=== PATIENT | female | born 1950 | race Hispanic/Latino ===

== ENCOUNTER → 2017-05-19 | Outpatient (CLI) | payer OTHER, MEDICARE ==
[2017-05-19 10:46] LABS: CREATININE 0.9 mg/dL (0.5-1.5)
== END | disposition home or self-care (01) ==
LOC: LAB 09:31
PROVIDERS: ATTEND Neurological Surgery
DX: M54.16 Radiculopathy, lumbar region (principal)
CPT/HCPCS: 36415; 82565; 84520

== ENCOUNTER → 2017-05-24 | Outpatient (CLI) | payer OTHER, MEDICARE ==
[~2017-05-24] MED LIST: GADOBENATE DIMEGLUMINE 20 ML IV ONE
== END | disposition home or self-care (01) ==
LOC: RAH 10:03
PROVIDERS: ATTEND Neurological Surgery
DX: M47.26 Other spondylosis with radiculopathy, lumbar region (principal); M48.061 Spinal stenosis, lumbar region without neurogenic claudication
CPT/HCPCS: 72158; A9577

== ENCOUNTER 2017-08-12 21:24 | Emergency (ER) | payer OTHER ==
[2017-08-12 22:03] LABS: APPEARANCE,URINE Clear (CLEAR); BILIRUBIN,URINE Negative (NEGATIVE); COLOR,URINE Yellow (YELLOW); GLUCOSE, URINE (UA) Negative (NEGATIVE); KETONES,URINE Negative (NEGATIVE); LEUKOCYTE ESTERASE ,URINE Negative (NEGATIVE); NITRATE,URINE Negative (NEGATIVE); OCCULT BLOOD,URINE Negative (NEGATIVE); PH,URINE >=9.0 (5.0-8.0); PROTEIN,URINE Negative (NEGATIVE); UROBILINOGEN,URINE 0.2 mg/dL (0.2-1.0)
[2017-08-12 23:01] LABS: BASOPHILS % (AUTO) 0.7 % (0.0-5.0); EOSINOPHILS % (AUTO) 1.5 % (0.0-8.0); HEMATOCRIT 30.8 % (36-48); MEAN CORPUSCULAR HEMOGLOBIN 37.3 pg (27.0-33.0); MEAN CORPUSCULAR HGB CONC 36.8 g/dL (32.0-36.0); MEAN CORPUSCULAR VOLUME 101.5 fL (79-99); MONOCYTES % (AUTO) 8.9 % (3.0-13.0); NEUTROPHILS % (AUTO) 39.9 % (40.0-77.0); NUCLEATED RED BLOOD CELLS 0.1 % (0.0-0.19); PLATELET COUNT (AUTO) 266 K/uL (130-400); RED BLOOD CELL COUNT(AUTO) 3.04 MIL/uL (4.00-5.50); RED CELL DISTRIBUTION WIDTH 13.8 % (11.0-15.5); WHITE BLOOD COUNT (AUTO) 6.5 K/uL (4.8-10.8)
[2017-08-12 23:08] LABS: POTASSIUM 3.1 mmol/L (3.5-5.1)
[2017-08-12 23:18] LABS: ALBUMIN 3.3 g/dL (3.5-5.0); BILIRUBIN,TOTAL 0.4 mg/dL (0.2-1.0); TOTAL PROTEIN, SERUM 7.1 g/dL (6.0-8.3)
[2017-08-12 23:27] LABS: CREATINE KINASE MB < 0.5 ng/mL (0.5-3.6); CREATINE KINASE, TOTAL 33 U/L (21-232); MYOGLOBIN 33 ng/mL (10-92); TROPONIN I < 0.04 ng/mL (0.00-0.06)
[2017-08-12] MEDS ORDERED: FENTANYL CITRATE PF 50 MCG/1 ML 2ML VIAL ONE (23:29)
[2017-08-13 00:19] LABS: ERYTHROCYTE SEDIMENTATION RATE 95 MM/HR (0-15)
== END 2017-08-13 01:55 | disposition left against medical advice (07) ==
LOC: EDH 21:24
DX: M54.5 Low back pain (principal); M25.552 Pain in left hip; R07.89 Other chest pain; R06.02 Shortness of breath; R53.1 Weakness; F41.9 Anxiety disorder, unspecified; I10 Essential (primary) hypertension; E78.5 Hyperlipidemia, unspecified; M19.90 Unspecified osteoarthritis, unspecified site
CPT/HCPCS: 36415; 80053; 81003; 82550; 82553; 83874; 84484; 85025; 85651; 93005; 96374; 99285; J3010

== ENCOUNTER → 2017-08-16 | Outpatient (CLI) | payer OTHER | END | disposition home or self-care (01) | LOC: RAH 08:13 | PROVIDERS: ATTEND Family Medicine | DX: Z12.31 Encounter for screening mammogram for malignant neoplasm of breast (principal) | CPT/HCPCS: 77067 ==

== ENCOUNTER → 2017-11-09 | Outpatient (CLI) | payer OTHER | END | disposition home or self-care (01) | LOC: RAH 08:43 | PROVIDERS: ATTEND Internal Medicine Gastroenterology | DX: K44.9 Diaphragmatic hernia without obstruction or gangrene (principal) | CPT/HCPCS: 74240 ==

== ENCOUNTER → 2018-02-07 | Outpatient (CLI) | payer OTHER | END | disposition home or self-care (01) | LOC: RAH 02-06 13:59 | PROVIDERS: ATTEND Family Medicine | DX: J44.9 Chronic obstructive pulmonary disease, unspecified (principal); J84.9 Interstitial pulmonary disease, unspecified; J90 Pleural effusion, not elsewhere classified; I10 Essential (primary) hypertension; E78.5 Hyperlipidemia, unspecified | CPT/HCPCS: 71046 ==

== ENCOUNTER → 2018-03-01 | Outpatient (CLI) | payer OTHER | END | disposition home or self-care (01) | LOC: SHCH 14:47 | PROVIDERS: ATTEND Internal Medicine Cardiovascular Disease | DX: R06.02 Shortness of breath (principal) | CPT/HCPCS: 93306 ==

== ENCOUNTER → 2018-08-20 | Outpatient (CLI) | payer OTHER | END | disposition home or self-care (01) | LOC: RAH 08:33 | PROVIDERS: ATTEND Family Medicine | DX: Z12.31 Encounter for screening mammogram for malignant neoplasm of breast (principal) | CPT/HCPCS: 77067 ==

== ENCOUNTER 2018-09-12 07:34 | Day surgery (SDC) | payer OTHER ==
[~2018-09-12] VITALS: Ht 157.5 cm; Wt 65.8 kg
[2018-09-12 07:51] VITALS: BP 173/90
[2018-09-12] MEDS ORDERED: [UNRECOGNIZED DRUG - REMARK] (08:02)
[2018-09-12] MEDS ORDERED: PAIN MED (08:02)
[2018-09-12] MEDS ORDERED: CHOLESTEROL (08:02)
[2018-09-12] MEDS ORDERED: ASPI-1197 PO (08:02)
[2018-09-12] MEDS ORDERED: HIGH BLOOD PRESSURE (08:02)
--- NOTE | 2018-09-12 08:12 | NUR ---
NURSING PER PT NO HX OF DIABETES Addendum: 09/12/18 at 0814 by JESS SOUSA RN Amended: Links added.
[2018-09-12] MEDS ORDERED: SODIUM CHLORIDE 0.9% 1000ML 1,000 ML IV ONE (08:16)
[2018-09-12 08:27] VITALS: BP 123/65
[2018-09-12 08:32] VITALS: BP 125/63
[2018-09-12 08:37] VITALS: BP 136/72
[2018-09-12 08:42] VITALS: BP 141/64
[2018-09-12 08:48] VITALS: BP 138/69
== END 2018-09-12 09:06 | disposition home or self-care (01) ==
LOC: DAH 07:34 → ENDO 07:34
PROVIDERS: ATTEND Internal Medicine
DX: K29.50 Unspecified chronic gastritis without bleeding (principal); K44.9 Diaphragmatic hernia without obstruction or gangrene; K21.9 Gastro-esophageal reflux disease without esophagitis; E11.9 Type 2 diabetes mellitus without complications; I10 Essential (primary) hypertension; E78.5 Hyperlipidemia, unspecified; M06.9 Rheumatoid arthritis, unspecified; Z98.890 Other specified postprocedural states; Z79.4 Long term (current) use of insulin; Z79.899 Other long term (current) drug therapy; Z79.84 Long term (current) use of oral hypoglycemic drugs; Z88.8 Allergy status to other drugs, medicaments and biological substances
CPT/HCPCS: 43239; 93005; A4606; J7030

== ENCOUNTER → 2018-10-18 | Outpatient (CLI) | payer OTHER ==
[~2018-10-18] MED LIST changes: +ASPI-1197 PO; +CHOLESTEROL; -GADOBENATE DIMEGLUMINE 20 ML IV ONE; +HIGH BLOOD PRESSURE; +PAIN MED; +[UNRECOGNIZED DRUG - REMARK]
== END | disposition home or self-care (01) ==
LOC: OIH 10:46
PROVIDERS: ATTEND Internal Medicine
DX: M85.872 Other specified disorders of bone density and structure, left ankle and foot (principal); M06.4 Inflammatory polyarthropathy
CPT/HCPCS: 73130; 73630

== ENCOUNTER → 2019-06-11 | Outpatient (CLI) | payer OTHER | LOC: SHCH 12:25 | PROVIDERS: ATTEND Internal Medicine Cardiovascular Disease | DX: I08.1 Rheumatic disorders of both mitral and tricuspid valves (principal); I87.2 Venous insufficiency (chronic) (peripheral); M19.071 Primary osteoarthritis, right ankle and foot; M20.5X1 Other deformities of toe(s) (acquired), right foot; R60.9 Edema, unspecified; R06.9 Unspecified abnormalities of breathing | CPT/HCPCS: 73630; 93306; 93356; 93970 ==

== ENCOUNTER 2020-04-14 06:30 | Day surgery (SDC) | payer OTHER ==
[2020-04-06 12:30] LABS: BASOPHILS % (AUTO) 0.5 % (0.0-5.0); EOSINOPHILS % (AUTO) 2.5 % (0.0-8.0); HEMATOCRIT 34.1 % (36-48); LYMPHOCYTES % (AUTO) 49.1 % (21.0-51.0); MEAN CORPUSCULAR HEMOGLOBIN 33.3 pg (27.0-33.0); MEAN CORPUSCULAR HGB CONC 33.1 g/dL (32.0-36.0); MEAN CORPUSCULAR VOLUME 100.6 fL (79-99); MONOCYTES % (AUTO) 10.1 % (3.0-13.0); NEUTROPHILS % (AUTO) 37.5 % (40.0-77.0); PLATELET COUNT (AUTO) 203 K/uL (130-400); RED BLOOD CELL COUNT(AUTO) 3.39 MIL/uL (4.00-5.50); RED CELL DISTRIBUTION WIDTH 13.8 % (11.0-15.5); WHITE BLOOD COUNT (AUTO) 7.9 K/uL (4.8-10.8)
[2020-04-06 12:39] LABS: POTASSIUM 4.2 mmol/L (3.5-5.1)
[2020-04-13 10:10] VITALS: BP 137/80
[2020-04-14] VITALS (13 sets, daily range): BP systolic 132–155; BP diastolic 70–88
[~2020-04-14] VITALS: Ht 157.5 cm; Wt 65.8 kg
[~2020-04-14 06:30] MED LIST changes: -ASPI-1197 PO; +CALC-190 PO; +CARAL PO; -CHOLESTEROL; +FERR-82 PO; +FOLI0.8C PO; +FURO20TA4 PO; -HIGH BLOOD PRESSURE; +HYDR-4064 PO; +LEVO5TAB13 PO; +MAGN400T40 PO; +MELA3TAB41 PO; +METH2.5T6 PO; +MV-M1TAB20 PO; +MV-M1TAB57 PO; +OMEP40CA13 PO; -PAIN MED; +PRAV40TA3 PO; +RIVA20TA PO; +SODIUM CHLORIDE 0.9% 500ML 500 ML IV SCH; +UBID100C45 PO; +VERA120T13 PO; -[UNRECOGNIZED DRUG - REMARK]
[2020-04-14] MEDS ORDERED: SODIUM CHLORIDE 0.9% 1000ML 1,000 ML IV ONE (06:47)
[2020-04-14] MEDS ORDERED: FLUMAZENIL 0.1MG/1ML 5ML VIAL IV ONE (07:34)
[2020-04-14] MEDS ORDERED: MIDAZOLAM HCL 1 MG/ML 2ML VIAL ONE (07:35)
[2020-04-14] MEDS ORDERED: FENTANYL CITRATE PF 50 MCG/1 ML 2ML VIAL ONE (07:35)
--- NOTE | 2020-04-14 08:52 | NUR ---
cardioversion cardioversion performed at bedside by Dr. Eduardo Zendejas pt tolerated well with no adverse reactions. shock time 100 joules at 0815. pt converted to NSR. Dr. Zendejas spoke to patient spouse about procedure. pt will be discharge later when stable and fully awake. procedure performed by concious sedation medications given total Versed 2mg ivp at 0812 Fentanyl 50mcg ivp at 0812 Fentanyl 25mcg ivp given at 0815
--- NOTE | 2020-04-14 11:00 | NUR ---
DC PT DC HOME VIA WC, NO DISTRESS NOTED. PT ACCOMPANIED BY SPOUSE.
== END 2020-04-14 11:00 | disposition home or self-care (01) ==
LOC: DAH 06:30
PROVIDERS: ATTEND Internal Medicine Cardiovascular Disease
DX: I48.0 Paroxysmal atrial fibrillation (principal); I10 Essential (primary) hypertension; I47.1 Supraventricular tachycardia; E78.2 Mixed hyperlipidemia; I87.2 Venous insufficiency (chronic) (peripheral); M06.9 Rheumatoid arthritis, unspecified; K21.9 Gastro-esophageal reflux disease without esophagitis; Z79.899 Other long term (current) drug therapy; Z79.01 Long term (current) use of anticoagulants; Z98.890 Other specified postprocedural states; Z98.49 Cataract extraction status, unspecified eye; Z90.710 Acquired absence of both cervix and uterus; Z88.8 Allergy status to other drugs, medicaments and biological substances; Z82.49 Family history of ischemic heart disease and other diseases of the circulatory system; Z83.438 Family history of other disorder of lipoprotein metabolism and other lipidemia
CPT/HCPCS: 36415; 80048; 85025; 92960; 93005 ×2; A4215; A4216; A4221; A4222; A4223 ×3; A4606; A4663; J2250; J3010; J7030; 99152; J3490

== ENCOUNTER → 2020-04-23 | Outpatient (CLI) | payer OTHER ==
[~2020-04-23] MED LIST changes: -SODIUM CHLORIDE 0.9% 500ML 500 ML IV SCH
== END | disposition home or self-care (01) ==
LOC: SHCH 08:54
PROVIDERS: ATTEND Internal Medicine Cardiovascular Disease
DX: I87.2 Venous insufficiency (chronic) (peripheral) (principal)
CPT/HCPCS: 93970

== ENCOUNTER 2020-12-04 05:58 | Day surgery (SDC) | payer OTHER ==
[2020-12-02 08:37] VITALS: BP 108/66
[2020-12-02 11:18] LABS: BASOPHILS % (AUTO) 0.3 % (0.0-5.0); EOSINOPHILS % (AUTO) 1.7 % (0.0-8.0); HEMATOCRIT 33.9 % (36-48); LYMPHOCYTES % (AUTO) 39.1 % (21.0-51.0); MEAN CORPUSCULAR HEMOGLOBIN 31.6 pg (27.0-33.0); MEAN CORPUSCULAR HGB CONC 32.2 g/dL (32.0-36.0); MEAN CORPUSCULAR VOLUME 98.3 fL (79-99); MONOCYTES % (AUTO) 9.7 % (3.0-13.0); NEUTROPHILS % (AUTO) 48.2 % (40.0-77.0); PLATELET COUNT (AUTO) 211 K/uL (130-400); RED BLOOD CELL COUNT(AUTO) 3.45 MIL/uL (4.00-5.50); RED CELL DISTRIBUTION WIDTH 14.8 % (11.0-15.5); WHITE BLOOD COUNT (AUTO) 6.9 K/uL (4.8-10.8)
[2020-12-02 11:25] LABS: CREATININE 0.9 mg/dL (0.5-1.5); POTASSIUM 4.5 mmol/L (3.5-5.1)
[2020-12-02 11:29] LABS: INR 0.99 (0.85-1.15); PROTHROMBIN TIME 10.8 SEC (9.6-11.6)
[2020-12-02 11:30] LABS: PARTIAL THROMBOPLASTIN TIME 25.7 SEC (26.3-35.5)
[2020-12-02 11:40] LABS: APPEARANCE,URINE Clear (CLEAR); BILIRUBIN,URINE Negative (NEGATIVE); COLOR,URINE Yellow (YELLOW); GLUCOSE, URINE (UA) Negative (NEGATIVE); KETONES,URINE Negative (NEGATIVE); LEUKOCYTE ESTERASE ,URINE Small (NEGATIVE); NITRATE,URINE Negative (NEGATIVE); OCCULT BLOOD,URINE Negative (NEGATIVE); PH,URINE 6.5 (5.0-8.0); PROTEIN,URINE Trace mg/dL (NEGATIVE)
[2020-12-02 11:46] LABS: BACTERIA,URINE Rare /HPF (None Seen); RBC,URINE None Seen /HPF (0-1); SQUAMOUS EPITHELIAL CELL,UR Rare /HPF (0-2); WBC,URINE None Seen /HPF (0-1)
[2020-12-04] VITALS (11 sets, daily range): BP systolic 105–163; BP diastolic 58–102
[~2020-12-04] VITALS: Ht 157.5 cm; Wt 62.1 kg
[~2020-12-04 05:58] MED LIST changes: +CALC-1009 PO; -CALC-190 PO; +MAGN400C PO; -MAGN400T40 PO; -MELA3TAB41 PO; +METO25TA6 PO; -OMEP40CA13 PO; +OMEP40CA21 PO; +VERA120C2 PO; -VERA120T13 PO
[2020-12-04] MEDS ORDERED: PANT40TA54 PO (07:02)
[2020-12-04] MEDS ORDERED: MIDAZOLAM HCL 1 MG/ML 2ML VIAL ONE (07:12)
[2020-12-04] MEDS ORDERED: BIVALIRUDIN 250 MG/VIAL IV ONE (07:12)
[2020-12-04] MEDS ORDERED: NITROGLYCERIN 2 MG VIAL IV ONE (07:12)
[2020-12-04] MEDS ORDERED: IOHEXOL-350 50ML VIAL IV ONE (07:12)
[2020-12-04] MEDS ORDERED: IOHEXOL 350 MG/ML 100ML INFUS..BTL IV ONE (07:12)
[2020-12-04] MEDS ORDERED: LIDOCAINE HCL 400MG/20ML VIAL ONE (07:13)
[2020-12-04] MEDS ORDERED: FENTANYL CITRATE PF 50 MCG/1 ML 2ML VIAL ONE (07:13)
[2020-12-04] MEDS ORDERED: 0.9%NACL 1000ML 1,000 ML IV SCH ×2 (08:00→09:00)
[2020-12-04] MEDS ORDERED: GLUCAGON 1MG KIT 1 MG ML IM PRN (09:00)
[2020-12-04] MEDS ORDERED: HYDRALAZINE 20MG/ML VIAL IV PRN (09:00)
[2020-12-04] MEDS ORDERED: DEXTROSE 50%-WATER 50 ML DISP.SYRIN IV PRN (09:00)
== END 2020-12-04 14:05 | disposition home or self-care (01) ==
LOC: DAH 05:58
PROVIDERS: ATTEND Internal Medicine Cardiovascular Disease
DX: I25.110 Atherosclerotic heart disease of native coronary artery with unstable angina pectoris (principal); I08.3 Combined rheumatic disorders of mitral, aortic and tricuspid valves; I11.0 Hypertensive heart disease with heart failure; I50.33 Acute on chronic diastolic (congestive) heart failure; I47.1 Supraventricular tachycardia; I48.0 Paroxysmal atrial fibrillation; M06.9 Rheumatoid arthritis, unspecified; K21.9 Gastro-esophageal reflux disease without esophagitis; F41.9 Anxiety disorder, unspecified; M19.90 Unspecified osteoarthritis, unspecified site; E78.2 Mixed hyperlipidemia; I87.2 Venous insufficiency (chronic) (peripheral); Z79.01 Long term (current) use of anticoagulants; Z79.82 Long term (current) use of aspirin; Z79.899 Other long term (current) drug therapy; Z98.890 Other specified postprocedural states; Z90.710 Acquired absence of both cervix and uterus; Z83.3 Family history of diabetes mellitus; Z82.49 Family history of ischemic heart disease and other diseases of the circulatory system; Z83.438 Family history of other disorder of lipoprotein metabolism and other lipidemia
CPT/HCPCS: 36415; 71045; 80048; 81001; 85025; 85610; 85730; 93005; 93306; 93356; 93460; A4215; A4216; A4221; A4222; A4223 ×3; A4606; A4663; C1760; C1769; C1894 ×3; J1644; J2250; J3490 ×2; J7030; Q9965; Q9967 ×2; 96360; 96361; 99156; 99157; J0583; J3010

== ENCOUNTER 2020-12-25 08:24 | Day surgery (SDC) | payer OTHER ==
[2020-12-23 15:36] LABS: BASOPHILS % (AUTO) 0.1 % (0.0-5.0); HEMATOCRIT 38.2 % (36-48); LYMPHOCYTES % (AUTO) 12.5 % (21.0-51.0); MEAN CORPUSCULAR HEMOGLOBIN 31.6 pg (27.0-33.0); MEAN CORPUSCULAR HGB CONC 32.7 g/dL (32.0-36.0); MEAN CORPUSCULAR VOLUME 96.7 fL (79-99); MONOCYTES % (AUTO) 6.2 % (3.0-13.0); NEUTROPHILS % (AUTO) 80.7 % (40.0-77.0); PLATELET COUNT (AUTO) 244 K/uL (130-400); RED BLOOD CELL COUNT(AUTO) 3.95 MIL/uL (4.00-5.50); RED CELL DISTRIBUTION WIDTH 14.8 % (11.0-15.5); WHITE BLOOD COUNT (AUTO) 11.1 K/uL (4.8-10.8)
[2020-12-23 15:46] LABS: CREATININE 0.9 mg/dL (0.5-1.5); POTASSIUM 4.7 mmol/L (3.5-5.1)
[2020-12-23 15:48] LABS: INR 1.05 (0.85-1.15); PROTHROMBIN TIME 11.4 SEC (9.6-11.6)
[2020-12-23 15:49] LABS: PARTIAL THROMBOPLASTIN TIME 25.4 SEC (26.3-35.5)
[2020-12-24 11:18] VITALS: BP 140/78
[~2020-12-25] VITALS: Ht 157.5 cm; Wt 60.8 kg
[2020-12-25] VITALS (14 sets, daily range): BP systolic 117–139; BP diastolic 57–86
[~2020-12-25 08:24] MED LIST changes: +0.9% NACL 500ML IV.SOLN 500 ML IV SCH; -CALC-1009 PO; -CARAL PO; -FERR-82 PO; -FOLI0.8C PO; -FURO20TA4 PO; -HYDR-4064 PO; -LEVO5TAB13 PO; -MAGN400C PO; -METH2.5T6 PO; -METO25TA6 PO; +METO50TA18 PO; -MV-M1TAB20 PO; -MV-M1TAB57 PO; -OMEP40CA21 PO; -PRAV40TA3 PO; -UBID100C45 PO
[2020-12-25] MEDS ORDERED: LIDOCAINE HCL 2% VISCOUS 15 ML UDCUP ONE (10:03)
[2020-12-25] MEDS ORDERED: FENTANYL CITRATE PF 50 MCG/1 ML 2ML VIAL ONE (10:13)
[2020-12-25] MEDS ORDERED: 0.9%NACL 1000ML 1,000 ML IV ONE (10:13)
[2020-12-25] MEDS ORDERED: MIDAZOLAM HCL 1 MG/ML 2ML VIAL ONE (10:13)
== END 2020-12-25 11:35 | disposition home or self-care (01) ==
LOC: DAH 08:24
PROVIDERS: ATTEND Internal Medicine Cardiovascular Disease
DX: I08.0 Rheumatic disorders of both mitral and aortic valves (principal); R06.9 Unspecified abnormalities of breathing; I10 Essential (primary) hypertension; E78.2 Mixed hyperlipidemia; K21.9 Gastro-esophageal reflux disease without esophagitis; I87.2 Venous insufficiency (chronic) (peripheral); I47.1 Supraventricular tachycardia; M06.9 Rheumatoid arthritis, unspecified; I25.10 Atherosclerotic heart disease of native coronary artery without angina pectoris; Z79.01 Long term (current) use of anticoagulants; Z79.82 Long term (current) use of aspirin; Z98.890 Other specified postprocedural states; Z90.710 Acquired absence of both cervix and uterus; Z79.899 Other long term (current) drug therapy; Z82.49 Family history of ischemic heart disease and other diseases of the circulatory system; Z83.438 Family history of other disorder of lipoprotein metabolism and other lipidemia
CPT/HCPCS: 36415; 80048; 85025; 85610; 85730; 93312; 93325; A4215; A4216; A4221; A4222; A4223 ×3; A4606; A4663; J2250; J3010; J7030; 93313; 99152; 99153

== ENCOUNTER 2022-06-06 13:38 | Emergency (ER) | payer OTHER ==
[~2022-06-06] VITALS: Ht 157.5 cm; Wt 58.5 kg
[~2022-06-06 13:38] MED LIST changes: -0.9% NACL 500ML IV.SOLN 500 ML IV SCH
[2022-06-06 14:28] LABS: BASOPHILS % (AUTO) 0.8 % (0.0-5.0); EOSINOPHILS % (AUTO) 4.6 % (0.0-8.0); LYMPHOCYTES % (AUTO) 53.9 % (21.0-51.0); MEAN CORPUSCULAR HEMOGLOBIN 32.3 pg (27.0-33.0); MEAN CORPUSCULAR HGB CONC 33.3 g/dL (32.0-36.0); MEAN CORPUSCULAR VOLUME 96.8 fL (79-99); MONOCYTES % (AUTO) 8.3 % (3.0-13.0); NEUTROPHILS % (AUTO) 32.1 % (40.0-77.0); PLATELET COUNT (AUTO) 287 K/uL (130-400); RED BLOOD CELL COUNT(AUTO) 4.03 MIL/uL (4.00-5.50); RED CELL DISTRIBUTION WIDTH 14.9 % (11.0-15.5); WHITE BLOOD COUNT (AUTO) 7.4 K/uL (4.8-10.8)
[2022-06-06 14:33] LABS: POTASSIUM 4.7 mmol/L (3.5-5.1)
[2022-06-06 14:37] LABS: ALBUMIN 3.6 g/dL (3.5-5.0); TOTAL PROTEIN, SERUM 8.6 g/dL (6.0-8.3)
[2022-06-06 14:52] VITALS: BP 131/89
[2022-06-06] MEDS ORDERED: HYDR50CA PO (17:55)
== END 2022-06-06 18:06 | disposition home or self-care (01) ==
LOC: EDH 13:38
DX: I48.91 Unspecified atrial fibrillation (principal); F41.9 Anxiety disorder, unspecified; M06.9 Rheumatoid arthritis, unspecified; I10 Essential (primary) hypertension; Z90.710 Acquired absence of both cervix and uterus; Z88.5 Allergy status to narcotic agent; Z90.49 Acquired absence of other specified parts of digestive tract; Z98.890 Other specified postprocedural states
CPT/HCPCS: 36415; 71045; 80053; 83880; 84484; 85025; 93005

== ENCOUNTER → 2023-07-15 | Outpatient (CLI) | payer OTHER ==
[~2023-07-15] MED LIST changes: +HYDR50CA PO
== END | disposition home or self-care (01) ==
LOC: SHCH 10:33
PROVIDERS: ATTEND Internal Medicine Cardiovascular Disease
DX: I08.3 Combined rheumatic disorders of mitral, aortic and tricuspid valves (principal); R06.09 Other forms of dyspnea
CPT/HCPCS: 93306

== ENCOUNTER 2024-07-08 08:15 | Day surgery (SDC) | payer OTHER ==
[2024-07-05 11:38] LABS: BASOPHILS # (AUTO) 0.03 K/uL (0.00-0.20); BASOPHILS % (AUTO) 0.6 % (0.0-5.0); EOSINOPHILS # (AUTO) 0.18 K/uL (0.00-0.70); EOSINOPHILS % (AUTO) 3.7 % (0.0-8.0); IMMATURE GRANULOCYTE ABSOLUTE 0.01 K/uL (0-1); LYMPHOCYTES # (AUTO) 1.9 K/uL (1.0-4.8); MEAN CORPUSCULAR HEMOGLOBIN 33.3 pg (27.0-33.0); MEAN CORPUSCULAR HGB CONC 33.5 g/dL (32.0-36.0); MEAN CORPUSCULAR VOLUME 99.4 fL (79-99); MONOCYTES # (AUTO) 0.6 K/uL (0.1-1.0); MONOCYTES % (AUTO) 12.9 % (3.0-13.0); NEUTROPHILS # (AUTO) 2.2 K/uL (1.8-7.7); NEUTROPHILS % (AUTO) 44.6 % (40.0-77.0); PLATELET COUNT (AUTO) 195 K/uL (130-400); RED BLOOD CELL COUNT(AUTO) 3.42 MIL/uL (4.00-5.50); RED CELL DISTRIBUTION WIDTH 13.7 % (11.0-15.5); WHITE BLOOD COUNT (AUTO) 4.9 K/uL (4.8-10.8)
[2024-07-05 11:39] VITALS: BP 163/93; PULSE 80; RESP 18; TEMP 98.1
[2024-07-05 11:47] LABS: CREATININE 0.9 mg/dL (0.5-1.0); POTASSIUM 4.4 mmol/L (3.5-5.1)
[2024-07-05 11:50] LABS: INR 1.16 (0.85-1.15); PROTHROMBIN TIME 12.1 SEC (9.6-11.6)
[2024-07-05 11:51] LABS: PARTIAL THROMBOPLASTIN TIME 33.7 SEC (26.3-35.5)
[~2024-07-08] VITALS: Ht 157.5 cm; Wt 63.0 kg
[2024-07-08] VITALS (13 sets, daily range): BP systolic 136–182; BP diastolic 67–97; PULSE 80–111; RESP 12–22; TEMP 97.5
[~2024-07-08 08:15] MED LIST changes: +ADAL40SY SQ; +DENO60DI SQ; +FURO40TA5 PO; -HYDR50CA PO; +METH2.5T6 PO; +METO100T14 PO; -METO50TA18 PO; +PRAV40TA3 PO; +VALS160T29 PO; -VERA120C2 PO
[2024-07-08] MEDS ORDERED: fluMAZenil 0.1MG/1ML 5ML VIAL IV ONE (09:30)
[2024-07-08] MEDS ORDERED: LIDOCAINE HCL 2% VISCOUS 15 ML UDCUP PO ONE (09:30)
[2024-07-08] MEDS ORDERED: NALoxone HCL 0.4 MG/1 ML ML IVP ONE (09:30)
[2024-07-08] MEDS: MIDAZOLAM HCL 1 MG/ML 2ML VIAL IVP ONE (10:50)
--- NOTE | 2024-07-08 10:50 | NUR ---
RE: ALEXANDER PROCEDURE DR ALBERTINA TANG IN ROOM AND ALMA DELIA/MONSTER IN ROOM WELL FOR ALEXANDER TIMEOUT DONE BY NURSE AND CONFIRMED BY MD 1020 VERSED 1MG ADMINISTERED VIA IV PUSH ORDERED BY MD, PT TOLERATED WELL. 1021 FENTANYL 25MCG ADMINISTERED VIA IV PUSH ORDERED BY MD, PT TOLERATED WELL. 1022 VERSED 1MG ADMINISTERED VIA IV PUSH ORDERED BY MD, PT TOLERATED WELL. 1023 FENTANYL 25MCG ADMINISTERED VIA IV PUSH ORDERED BY MD, PT TOLERATED WELL. 1054 SCOPE INTRODUCED INTO PATIENT'S ORAL CAVITY BY , ALEXANDER STARTED. 1102 SCOPE REMOVED, ALEXANDER COMPLETE. PT TOLERATED WELL, VITAL SIGNS STABLE. 1107 MD OUT OF ROOM, RECOVERY STARTED BY NURSE.
[2024-07-08] MEDS: FENTanyl CITRate PF 50 MCG/1 ML 2ML VIAL IVP ONE (10:51)
[2024-07-08] MEDS: 0.9%NACL 1000ML 1,000 ML IV SCH (14:32)
--- NOTE | 2024-07-08 15:27 | HMCSR ---
APPROVED REPORT EXAM: Transesophageal echocardiogram with color flow Doppler. INDICATION ICD: I48.0 Chronic AF PROCEDURE After obtaining informed consent, patient underwent transesophageal echo in the Day Patient Room 15. 15 mL 2% Viscous Lidocaine was given as a topical anesthetic prior to the administration of the consc ious sedation. Type of Sedation: Conscious Sedation Sedation was administered by Jennifer Key RN. Transesophageal probe was inserted and advanced into esophagus without difficulty by Dr. Zendejas. ALEXANDER was performed and images were obtained, probe was removed without complications. Throughout the procedure, the blood pressure, pulse oximetry, cardiac rhythm, and rate were monitored . The patient tolerated the procedure without adverse effects. Recovery from conscious sedation was une ventful and vital signs were stable. Left Ventricle Left ventricular cavity size is normal. There is normal left ventricular wall thickness. LVEF is 45-5 0%. Right Ventricle Right ventricle is grossly normal in size. Atria Spontaneous echo contrast is noted. The left atrium is severely dilated. No thrombus is visualized in the left atrium or appendage. The right atrium is severely dilated. Aortic Valve The aortic valve is normal in structure and function. No aortic regurgitation is present. There is no aortic valvular stenosis. Mitral Valve Mitral valve is grossly normal in structure. Mitral regurgitation is moderate. EROA 0.3cm2 . There is no mitral valve stenosis. Tricuspid Valve The tricuspid valve is normal in structure. There is moderate tricuspid valve regurgitation noted. Pulmonic Valve Pulmonic valve is grossly normal in structure. There is no pulmonic valvular regurgitation. Great Vessels The aortic root is normal in size. Pericardium No pericardial effusion. Conclusion LVEF is 45-50%. Spontaneous echo contrast is noted. The left atrium is severely dilated. No thrombus is visualized in the left atrium or appendage. The right atrium is severely dilated. Mitral regurgitation is moderate. EROA 0.3cm2 .
== END 2024-07-08 11:50 | disposition home or self-care (01) ==
LOC: DAH 08:15 → EDSTATUS 11:00 → DAH 11:50
PROVIDERS: ATTEND Internal Medicine Cardiovascular Disease
DX: I48.20 Chronic atrial fibrillation, unspecified (principal); I08.1 Rheumatic disorders of both mitral and tricuspid valves; I10 Essential (primary) hypertension; I47.10 Supraventricular tachycardia, unspecified; I11.9 Hypertensive heart disease without heart failure; I25.10 Atherosclerotic heart disease of native coronary artery without angina pectoris; I87.2 Venous insufficiency (chronic) (peripheral); E78.2 Mixed hyperlipidemia; K21.9 Gastro-esophageal reflux disease without esophagitis; M06.9 Rheumatoid arthritis, unspecified; R13.10 Dysphagia, unspecified; Z79.899 Other long term (current) drug therapy; Z88.8 Allergy status to other drugs, medicaments and biological substances; Z79.01 Long term (current) use of anticoagulants; Z98.890 Other specified postprocedural states
CPT/HCPCS: 80048; 85025; 85610; 85730; 36415; 93325; 93312; A4223 ×3; J3010; J2250; A4615; A4215; A4657; A4222; A4221; A4663; A4216; A4606; 99156; J2310; J3490